=== PATIENT | female | born 1950 | race Caucasian/White ===

== ENCOUNTER → 2021-12-09 14:05 | Outpatient (CLI) | payer MEDICARE, OTHER, SELFPAY ==
[2021-12-09 14:45] LABS: COVID19 -Nasal RAPID Negative (Negative)
== END ==
PROVIDERS: PCP Family Medicine; Visit Provider Surgery
DX: Z20.822 Contact with and (suspected) exposure to COVID-19 (principal); Z01.812 Encounter for preprocedural laboratory examination
CPT/HCPCS: 87635; C9803

== ENCOUNTER 2021-12-10 11:07 | Day surgery (SDC) | payer MEDICARE, OTHER, SELFPAY ==
[2021-12-10 11:47] VITALS: BMI 30.9
[2021-12-10 11:51] VITALS: BP 151/81; PULSE 85; RESP 16; TEMP 36.4; O2SAT 94
[2021-12-10] MEDS: SODIUM CHLORIDE 0.9% 1,000 ML 84 ML IV (11:53)
--- NOTE | 2021-12-10 13:07 | PM.HP.1 ---
History of Present Illness History of Present Illness Chief complaint: Colonoscopy Narrative: History of colon cancer need for follow-up colonoscopy. Last colonoscopy 5 years ago. Patient History Medical History (Updated 12/10/21 @ 11:31 by Betty Jeong RN) Borderline diabetes Colon cancer Hypertension Surgical History (Updated 12/10/21 @ 11:30 by Betty Jeong RN) History of colectomy Family & Social History Social History: household members spouse Tobacco & Substance use: Smoking Status Never smoker alcohol intake current alcohol intake frequency 0-2 drinks per day Substance Use Type does not use Meds Home Medications and Allergies Home Medications Medication Instructions Recorded Confirmed Type cholecalciferol (vitamin D3) 100 100 mcg PO DAILY 12/10/21 12/10/21 History mcg (4,000 unit) capsule coenzyme Q10 100 mg capsule 100 mg PO DAILY 12/10/21 12/10/21 History (CoQ-10) krill 1,000 mg-omega-3 170 mg-dha 1 cap PO DAILY 12/10/21 12/10/21 History 50 mg-epa 80 [id number] capsule (krill oil) lisinopril 20 1 tab PO DAILY 12/10/21 12/10/21 History mg-hydrochlorothiazide 25 mg tablet multivitamin 1 tab PO DAILY 12/10/21 12/10/21 History Allergies Allergy/AdvReac Type Severity Reaction Status Date / Time No Known Drug Allergies Allergy Verified 12/10/21 11:29 Exam Vital Signs (past 8 hours): - 12/10/21 11:51 Temperature 97.6 F Pulse Rate 85 Respiratory Rate 16 Blood Pressure 151/81 H Pulse Oximetry 94 Oxygen Delivery Method Room Air Oxygen Delivery Method Room Air Narrative Exam Narrative: Or oropharynx free of lesions Chest clear to auscultation percussion Cardiac exam reveals no S3 or murmur Assessment & Plan Assessment & Plan narrative: Personal history of colon cancer need for follow-up colonoscopy. Risks, benefits, alternatives have been explained. Time Spent With Patient Critical Care time: I spent a total of [] minutes of critical care time on this patient's care today; this time is exclusive of procedural time.
--- NOTE | 2021-12-10 13:08 | PM.OP.COLON ---
Operative Date/Time/Diagnoses Date of procedure: 12/10/21 Pre-op diagnosis: See indication and findings Procedure & Clinicians Study performed: Colonoscopy Indications: Personal history of colon cancer Surgeon: Arnulfo Hoover Procedure Notes Procedure in detail: After informed consent was obtained the patient was placed in left lateral decubitus position. The video colonoscope was introduced to the rectum slowly advanced cecum. On slow withdrawal mucosa was carefully examined. Preparation was good. Scope was removed. The patient tolerated procedure well. Blood loss none Complications none Sedation mac Findings 1. Scattered diverticula throughout the colon, few 2. Otherwise negative colonoscopy to cecum With Breanna's personal history of colon cancer she should have follow-up colonoscopy sometime in the 3-5 year range.
[2021-12-10 13:40] VITALS: BP 101/66; PULSE 86; RESP 20; TEMP 37; O2SAT 96
[2021-12-10 13:44] VITALS: BP 119/66; PULSE 86; RESP 24; O2SAT 99
[2021-12-10 13:50] VITALS: BP 130/64; PULSE 73; RESP 19; TEMP 36.6; O2SAT 98
[2021-12-10 13:54] VITALS: BP 126/65; PULSE 75; RESP 14; TEMP 36.6; O2SAT 99
--- NOTE | 2021-12-10 14:17 | SUR.PHASEII ---
1410 Patient pleasant, alert, and oriented. No discomfort or questions.
== END 2021-12-10 14:10 | disposition home or self-care (01) ==
PROVIDERS: PCP Family Medicine; Referring Provider Internal Medicine Gastroenterology; Visit Provider Internal Medicine Gastroenterology
PROC: 0DJD8ZZ Inspection of Lower Intestinal Tract, Via Natural or Artificial Opening Endoscopic (ICD-10-PCS; CPT 45378; principal; 2021-12-10 13:30)
DX: Z12.11 Encounter for screening for malignant neoplasm of colon (principal); Z85.038 Personal history of other malignant neoplasm of large intestine; K57.30 Diverticulosis of large intestine without perforation or abscess without bleeding; R73.03 Prediabetes; I10 Essential (primary) hypertension; Z90.49 Acquired absence of other specified parts of digestive tract
CPT/HCPCS: G0105; J2704